=== PATIENT | male | born 1980 | race Caucasian/White ===

== ENCOUNTER 2021-12-30 05:22 | Emergency (ER) | payer OTHER ==
[2021-12-30 05:49] LABS: Absolute Lymphocytes (CBC) 4.5 K/uL (0.7-4.9); Hematocrit 44.3 % (39.6-49.0); Lymphocytes % 50.4 % (15.3-44.8); MCV 88.8 fL (80-100); MPV 7.8 fL (7.6-11.3)
[2021-12-30] MEDS ORDERED: TAMSULOSIN 0.4 MG SR CAP ONE (05:54)
[2021-12-30] MEDS ORDERED: ONDANSETRON 4 MG/2 ML VIAL ONE (05:54)
[2021-12-30] MEDS ORDERED: MAGNESIUM SULFATE 1 gm IVPB 1 GM/100 ML BAG IV ONE (05:54)
[2021-12-30] MEDS ORDERED: MEPERIDINE HCL 50 MG/ML ONE (05:54)
[2021-12-30 06:05] LABS: Albumin 3.9 g/dL (3.4-5.0); Bilirubin Total 0.4 mg/dL (0.2-1.0); Potassium 3.4 mmol/L (3.5-5.1); Protein, Total 7.4 g/dL (6.4-8.2)
[2021-12-30] MEDS ORDERED: KETOROLAC 30 MG/ML INJ ONE (06:24)
--- NOTE | 2021-12-30 08:06 | ER ---
Nurse's Notes [facility] Name: Lawrence Cordova Age: 41 yrs Sex: Male : 1980 Arrival Date: 12/30/2021 Time: 05:25 Bed 13 Private MD: Diagnosis: Kidney stone / uretrolithiasis Presentation: 12/30 05:33 Chief complaint: Patient states: he started having severe right flank pain with nausea bb and vomiting since 0430 pt thinks its a kidney stone he has had kidney stones in the past. Coronavirus screen: At this time, the client does not indicate any symptoms associated with coronavirus-19. Ebola Screen: No symptoms or risks identified at this time. Initial Sepsis Screen: Does the patient meet any 2 criteria? No. Patient's initial sepsis screen is negative. Does the patient have a suspected source of infection? No. Patient's initial sepsis screen is negative. Risk Assessment: Do you want to hurt yourself or someone else? Patient reports no desire to harm self or others. Onset of symptoms was December 30, 2021. 05:33 Method Of Arrival: Ambulatory bb 05:33 Acuity: KURTIS 3 bb Historical: - Allergies: 05:35 No Known Allergies; bb - Home Meds: 05:35 buprenorphine [Active]; bb - PMHx: 05:35 substance abuse; kidney stones; bb - PSHx: 05:35 discectomy; Lithotripsy; bb - Immunization history:: Client reports having NOT received the Covid vaccine. - Social history:: Smoking status: unknown. - Family history:: not pertinent. - Hospitalizations: : No recent hospitalization is reported. Screenin:11 Abuse screen: Denies threats or abuse. Denies injuries from another. Nutritional jg9 screening: No deficits noted. Tuberculosis screening: No symptoms or risk factors identified. Fall Risk None identified. Assessment: 05:45 General: Appears in no apparent distress. comfortable, Behavior is calm, cooperative, jb4 appropriate for age. Pain: Complains of pain in right low back Pain does not radiate. Pain currently is 10 out of 10 on a pain scale. Neuro: Level of Consciousness is awake, alert, obeys commands, Oriented to person, place, time, situation. Cardiovascular: Patient's skin is warm and dry. Respiratory: Airway is patent Respiratory effort is even, unlabored, Respiratory pattern is regular, symmetrical. GI: Abdomen is flat, non-distended, Reports nausea, vomiting. Derm: Skin is intact, Skin is pink, warm \\T\\ dry. 06:44 Reassessment: Patient appears in no apparent distress at this time. Patient and/or jb4 family updated on plan of care and expected duration. Pain level reassessed. Patient is alert, oriented x 3, equal unlabored respirations, skin warm/dry/pink. Pt states " the pain is a lot better after the Toradol. Patient states feeling better. Patient states symptoms have improved. 06:56 Reassessment: Attempted to collect urine specimen. Pt states " I still can't pee." jb4 Provider notified. 07:11 GI: Bowel sounds present X 4 quads. Abd is soft and non tender X 4 quads. jg9 07:11 Reassessment: Patient and/or family updated on plan of care and expected duration. Pain jg9 level reassessed. Patient is alert, oriented x 3, equal unlabored respirations, skin warm/dry/pink. 08:00 Reassessment: Patient and/or family updated on plan of care and expected duration. Pain jg9 level reassessed. Patient is alert, oriented x 3, equal unlabored respirations, skin warm/dry/pink. patient reports still having pain but he has been sleeping and in no obvious distress. Vital Signs: 05:33 Weight 83.91 kg (R); Height 5 ft. 8 in. (172.72 cm) (R); Pain 10/10; bb 05:41 BP 126 / 91; Pulse 57; Resp 26; Temp 97.5(O); Pulse Ox 100% on R/A; ke1 06:44 BP 115 / 97; Pulse 57; Resp 16; Pulse Ox 98% on R/A; jb4 07:00 BP 114 / 82; Pulse 57; Resp 14 S; Pulse Ox 96% on R/A; Pain 7/10; jg9 08:00 BP 115 / 81; Pulse 60; Resp 17; Pulse Ox 95% ; Pain 7/10; jg9 05:33 Body Mass Index 28.13 (83.91 kg, 172.72 cm) bb ED Course: 05:25 Patient arrived in ED. bp1 05:26 Miles Stapleton MD is Attending Physician. rn 05:35 Triage completed. bb 05:35 Arm band placed on Patient placed in an exam room, on a stretcher, on pulse oximetry. bb 05:41 Luis Austin, RN is Primary Nurse. ke1 05:44 Inserted saline lock: 18 gauge in right antecubital area, using aseptic technique. ds4 Blood collected. 06:16 CT Stone Protocol In Process Unspecified. EDMS 07:07 Attending Physician role handed off by Miles Stapleton MD sp3 07:07 Slime Daly MD is Attending Physician. sp3 07:11 Patient has correct armband on for positive identification. Bed in low position. Call jg9 light in reach. Side rails up X 1. 08:04 Matias Hines MD is Referral Physician. sp3 08:13 No provider procedures requiring assistance completed. jg9 08:14 IV discontinued. jg9 Administered Medications: 05:44 Not Given (Patient Refused): Dilaudid (HYDROmorphone) 1 mg IVP once rn 05:51 Drug: Zofran (Ondansetron) 4 mg Route: IVP; Site: right antecubital; jb4 07:19 Follow up: Response: No adverse reaction jg9 05:53 Drug: Magnesium Sulfate 1 grams Route: IVPB; Infused Over: 1 hrs; Site: right jb4 antecubital; 07:19 Follow up: IV Status: Completed infusion; IV Intake: 100ml jg9 05:53 Drug: Demerol (meperidine) 50 mg Route: IVP; Site: right antecubital; jb4 07:19 Follow up: Response: No adverse reaction; Pain is unchanged, physician notified jg9 06:14 Drug: Flomax (tamsulosin) 0.4 mg Route: PO; jb4 07:19 Follow up: Response: No adverse reaction jg9 06:19 Drug: Ketorolac 30 mg Route: IVP; Site: right antecubital; jb4 07:19 Follow up: Response: No adverse reaction; Pain is decreased jg9 Medication: 08:14 VIS not applicable for this client. jg9 Intake: 07:19 IV: 100ml; Total: 100ml. jg9 Outcome: 08:05 Discharge ordered by . sp3 08:13 Discharged to home ambulatory. jg9 08:13 Condition: stable 08:13 Discharge instructions given to patient, Instructed on discharge instructions, follow up and referral plans. Demonstrated understanding of instructions, follow-up care, Prescriptions given X 1. 08:18 Patient left the ED. jg9 Signatures: Dispatcher [employer] EDKristen Johnson, RN RN bb Miles Stapleton MD MD rn Swanson, Donovan ds4 Cameron Bruce RN RN jb4 Fiona Sullivan Setul, MD MD sp3 Cyndee Haider RN RN jg9 Luis Austin RN RN ke1
--- NOTE | 2021-12-30 08:06 | EDPHYS ---
Physician Documentation [facility] Name: Lawrence Cordova Age: 41 yrs Sex: Male : 1980 Arrival Date: 12/30/2021 Time: 05:25 Bed 13 Private MD: ED Physician Slime Daly HPI: 12/30 05:37 This 41 yrs old Male presents to ER via Ambulatory with complaints of Possible Kidney rn Stone. 05:37 The patient complains of pain in the right low back. The pain radiates to the abdomen. rn Onset: The symptoms/episode began/occurred just prior to arrival. Modifying factors: The symptoms are alleviated by nothing. the symptoms are aggravated by nothing. Associated signs and symptoms: Pertinent positives: nausea, vomiting, Pertinent negatives: fever. Severity of pain: At its worst the pain was severe in the emergency department the pain is unchanged. The patient has experienced similar episodes in the past. The patient has not recently seen a physician. Pt reports sudden onset right flank pain. + hx of kidney stones and states feels identical. [place] fine when went to bed. . Historical: - Allergies: 05:35 No Known Allergies; bb - Home Meds: 05:35 buprenorphine [Active]; bb - PMHx: 05:35 substance abuse; kidney stones; bb - PSHx: 05:35 discectomy; Lithotripsy; bb - Immunization history:: Client reports having NOT received the Covid vaccine. - Social history:: Smoking status: unknown. - Family history:: not pertinent. - Hospitalizations: : No recent hospitalization is reported. ROS: 05:37 Constitutional: Negative for fever, chills, and weight loss, Cardiovascular: Negative rn for chest pain, palpitations, and edema, Respiratory: Negative for shortness of breath, cough, wheezing, and pleuritic chest pain, Abdomen/GI: Negative for abdominal pain, diarrhea, and constipation, Back: + right flank pain : Negative for injury, bleeding, discharge, and swelling, MS/Extremity: Negative for injury and deformity, Skin: Negative for injury, rash, and discoloration, Neuro: Negative for headache, weakness, numbness, tingling, and seizure. Exam: 05:37 Constitutional: Appears uncomfortable Head/Face: Normocephalic, atraumatic. Eyes: rn Periorbital areas with no swelling, redness, or edema. Cardiovascular: Tachycardic, regular Respiratory: + mild tachypnea Abdomen/GI: soft, non-tender Back: + Right CVAT MS/ Extremity: Pulses equal, no cyanosis. Neuro: Awake and alert, GCS 15 Vital Signs: 05:33 Weight 83.91 kg (R); Height 5 ft. 8 in. (172.72 cm) (R); Pain 10/10; bb 05:41 BP 126 / 91; Pulse 57; Resp 26; Temp 97.5(O); Pulse Ox 100% on R/A; ke1 06:44 BP 115 / 97; Pulse 57; Resp 16; Pulse Ox 98% on R/A; jb4 07:00 BP 114 / 82; Pulse 57; Resp 14 S; Pulse Ox 96% on R/A; Pain 7/10; jg9 08:00 BP 115 / 81; Pulse 60; Resp 17; Pulse Ox 95% ; Pain 7/10; jg9 05:33 Body Mass Index 28.13 (83.91 kg, 172.72 cm) bb MDM: 05:26 Patient medically screened. rn 06:43 ED course: Pt refuses dilaudid/morphine. . rn 06:54 Transition of care: After a detail discussion of the patient's case, care is rn transferred to Slime Daly MD. 08:03 Data reviewed: vital signs, nurses notes. ED course: Just pain is improved on the sp3 Toradol. He states he does not want any narcotics at home. We will discharge patient home on diclofenac and he will follow-up with his urologist as needed.. 12/30 05:36 Order name: CBC with Diff; Complete Time: 06:10 rn 12/30 05:36 Order name: CMP; Complete Time: 06:10 rn 12/30 05:36 Order name: Lipase; Complete Time: 06:10 rn 12/30 05:36 Order name: CT Stone Protocol rn 12/30 05:36 Order name: IV Saline Lock; Complete Time: 05:42 rn 12/30 05:36 Order name: Labs collected and sent; Complete Time: 05:42 rn Administered Medications: 05:44 Not Given (Patient Refused): Dilaudid (HYDROmorphone) 1 mg IVP once rn 05:51 Drug: Zofran (Ondansetron) 4 mg Route: IVP; Site: right antecubital; jb4 07:19 Follow up: Response: No adverse reaction jg9 05:53 Drug: Magnesium Sulfate 1 grams Route: IVPB; Infused Over: 1 hrs; Site: right jb4 antecubital; 07:19 Follow up: IV Status: Completed infusion; IV Intake: 100ml jg9 05:53 Drug: Demerol (meperidine) 50 mg Route: IVP; Site: right antecubital; jb4 07:19 Follow up: Response: No adverse reaction; Pain is unchanged, physician notified jg9 06:14 Drug: Flomax (tamsulosin) 0.4 mg Route: PO; jb4 07:19 Follow up: Response: No adverse reaction jg9 06:19 Drug: Ketorolac 30 mg Route: IVP; Site: right antecubital; jb4 07:19 Follow up: Response: No adverse reaction; Pain is decreased jg9 Disposition Summary: 12/30/21 08:05 Discharge Ordered Location: Home sp3 Condition: Stable sp3 Diagnosis - Kidney stone / uretrolithiasis sp3 Followup: sp3 - With: Matias Hines MD - When: Upon discharge from the Emergency Department - Reason: Recheck today's complaints Discharge Instructions: - Discharge Summary Sheet sp3 - Kidney Stones sp3 Forms: - Medication Reconciliation Form sp3 - Thank You Letter sp3 - Antibiotic Education sp3 - Prescription Opioid Use sp3 Prescriptions: - Diclofenac Sodium 75 mg Oral Tablet Sustained Release - take 1 tablet by ORAL route 2 times per day; 30 tablet; Refills: 0, Product sp3 Selection Permitted Signatures: Dispatcher [employer] EDMS Kristen Jacobson RN RN bb Nieto, Roman, MD MD rn Bryson, James, RN RN jb4 Slime Daly MD MD sp3 Cyndee Haider RN jg9 Corrections: (The following items were deleted from the chart) 05:39 05:37 Constitutional: Negative for fever, chills, and weight loss, Cardiovascular: rn Negative for chest pain, palpitations, and edema, Respiratory: Negative for shortness of breath, cough, wheezing, and pleuritic chest pain, Abdomen/GI: Negative for abdominal pain, nausea, vomiting, diarrhea, and constipation, Back: + right flank pain : Negative for injury, bleeding, discharge, and swelling, MS/Extremity: Negative for injury and deformity, Skin: Negative for injury, rash, and discoloration, Neuro: Negative for headache, weakness, numbness, tingling, and seizure, rn
[2021-12-30 08:35] VITALS: TEMP 97.5
[2021-12-30 08:55] VITALS: BP 115/81; O2SAT 95
--- NOTE | 2021-12-30 10:17 | RAD REPORT ---
EXAM DESCRIPTION: CT - Stone Protocol - 12/30/2021 6:46 am CLINICAL HISTORY: The patient is 41 years old and is Male; right flank pain, hx of stones, eval for stone TECHNIQUE: Axial computed tomography images of the abdomen and pelvis without intravenous contrast. Sagittal and coronal reformatted images were created and reviewed. This CT exam was performed usi ng one or more of the following dose reduction techniques: automated exposure control, adjustment o f the mA and/or kV according to patient size, and/or use of iterative reconstruction technique. COMPARISON: No relevant prior studies available. FINDINGS: Lung bases: Unremarkable. No mass. No consolidation. ABDOMEN: Liver: Unremarkable. Gallbladder and bile ducts: Unremarkable. No calcified stones. No ductal dilation. Pancreas: Unremarkable. No ductal dilation. Spleen: Unremarkable. No splenomegaly. Adrenals: Unremarkable. No mass. Kidneys and ureters: 6 mm stone in the upper right ureter. Mild right hydroureteronephrosis and p eriureteral stranding. Nonobstructing calcifications in the kidneys bilaterally. Stomach and bowel: Unremarkable. No obstruction. No mucosal thickening. PELVIS: Appendix: No findings to suggest acute appendicitis. Bladder: Unremarkable. No stones. Reproductive: Unremarkable as visualized. ABDOMEN and PELVIS: Intraperitoneal space: Unremarkable. No free air. No significant fluid collection. Bones/joints: No acute fracture. No dislocation. Soft tissues: Unremarkable. Vasculature: Unremarkable. No abdominal aortic aneurysm. Lymph nodes: Unremarkable. No enlarged lymph nodes. IMPRESSION: 6 mm stone in the upper right ureter. Mild right hydroureteronephrosis and periureteral stranding. Electronically signed by: Matias Cage MD 12/30/2021 6:36 AM CDT Due to temporary technical issues with the PACS/Fluency reporting system, reports are being signed by the in house radiologists without review as a courtesy to insure prompt reporting. The interpreting radiologist is fully responsible for the content of the report.
== END 2021-12-30 08:18 | disposition home or self-care (01) ==
LOC: ER 05:22
DX: N20.2 Calculus of kidney with calculus of ureter (principal); Z87.442 Personal history of urinary calculi
CPT/HCPCS: 85025; 36415; 83690; 80053; 76377; 74176; J3475; J2175; J2405; 96365; 96375; 99284

== ENCOUNTER 2022-05-01 20:12 | Emergency (ER) | payer OTHER ==
[2022-05-01] MEDS ORDERED: FAMOTIDINE 20 MG/2 ML VIAL IV ONE (20:33)
[2022-05-01] MEDS ORDERED: ONDANSETRON 4 MG/2 ML VIAL ONE (20:33)
[2022-05-01] MEDS ORDERED: KETOROLAC 30 MG/ML INJ ONE (20:33)
[2022-05-01 20:45] LABS: Absolute Lymphocytes (CBC) 5.1 K/uL (0.7-4.9); Hematocrit 46.8 % (39.6-49.0); MCV 88.1 fL (80-100); MPV 7.8 fL (7.6-11.3); RBC Red Blood Cell Count 5.31 M/uL (4.33-5.43)
[2022-05-01] MEDS ORDERED: HYDROMORPHONE HCL 1 MG/ML INJ ONE ×2 (20:45→21:36)
[2022-05-01 21:03] LABS: Albumin 4.4 g/dL (3.4-5.0); Bilirubin Total 0.4 mg/dL (0.2-1.0); Potassium 3.4 mmol/L (3.5-5.1); Protein, Total 7.9 g/dL (6.4-8.2)
--- NOTE | 2022-05-01 21:26 | RAD REPORT ---
EXAM DESCRIPTION: CTStone Protocol - 05/01/2022 9:07 pm CLINICAL HISTORY: Flank pain, kidney stone suspected COMPARISON: 12/30/2021 TECHNIQUE: CT of the abdomen and pelvis was performed without IV contrast. All CT scans are performed using dose optimization technique as appropriate and may include automated exposure control or mA/KV adjustment according to patient size. FINDINGS: Lower chest: No acute abnormality. Liver: No acute abnormality or suspicious lesions. Biliary: No biliary ductal dilatation. Stomach: No significant focal abnormality. Duodenum: No significant focal abnormality. Pancreas: No significant abnormality. Spleen: No significant abnormality. Adrenal: No suspicious lesions. Kidney/ureter: Moderate right-sided hydronephrosis. 7mm stone in the right mid to distal ureter is id entified. This may represent the previously identified right proximal ureteral stone which has migrat ed. Other bilateral renal calculi noted. Retroperitoneum: No retroperitoneal adenopathy. Vascular: No aneurysm. Bowel: No significant focal abnormality. Diverticulosis. No evidence of acute diverticulitis . Normal appendix. Peritoneum: No ascites or free air. Bladder: Grossly unremarkable. Reproductive: No adnexal masses. Bones: No acute fracture. Other: n/a IMPRESSION: Moderate right-sided hydroureteronephrosis. A 7 mm stone is present in the right mid to distal distal ureter. The patient had a similar size proximal ureteral stone on the CT from 2. This may represent the same stone which has migrated.
--- NOTE | 2022-05-01 22:10 | EDPHYS ---
Physician Documentation [facility] Name: Lawrence Cordova Age: 41 yrs Sex: Male : 1980 Arrival Date: 05/01/2022 Time: 20:20 Bed 3 Private MD: ED Physician Maninder Wood HPI: 05/01 23:59 This 41 yrs old Male presents to ER via Wheelchair with complaints of flank pain. kdr 23:59 Patient has a history of kidney stones and for the last 2 days he has had right flank kdr pain. He arrived by POV and was writhing in pain in the vehicle.. Onset: The symptoms/episode began/occurred gradually, 2 day(s) ago. Severity of symptoms: At their worst the symptoms were severe incapacitating in the emergency department the symptoms are unchanged. The patient has experienced a previous episode, approximately 4 months ago. The patient has not recently seen a physician. Historical: - Allergies: 20:21 No Known Allergies; kb3 - Home Meds: 20:21 buprenorphine [Active]; kb3 - PMHx: 20:21 Kidney stones; Substance Abuse; kb3 - PSHx: 20:21 discectomy; Lithotripsy; kb3 - Immunization history:: Adult Immunizations unknown, Client reports receiving the 2nd dose of the Covid vaccine, Last tetanus immunization: unknown. - Social history:: Smoking status: Patient denies any tobacco usage or history of. Patient uses street drugs, marijuana. ROS: 23:59 Constitutional: Negative for fever, chills, and weight loss, Eyes: Negative for injury, kdr pain, redness, and discharge, Neck: Negative for injury, pain, and swelling, Cardiovascular: Negative for chest pain, palpitations, and edema, Respiratory: Negative for shortness of breath, cough, wheezing, and pleuritic chest pain, Abdomen/GI: Negative for abdominal pain, nausea, vomiting, diarrhea, and constipation, Back: Negative for injury and pain, : Negative for injury, bleeding, discharge, and swelling, MS/Extremity: Negative for injury and deformity, Skin: Negative for injury, rash, and discoloration, Neuro: Negative for headache, weakness, numbness, tingling, and seizure activity. Psych: Negative for depression, anxiety, suicide ideation, homicidal ideation, and hallucinations, Allergy/Immunology: Negative for hives, rash, and allergies, Endocrine: Negative for neck swelling, polydipsia, polyuria, polyphagia, and marked weight changes, Hematologic/Lymphatic: Negative for swollen nodes, abnormal bleeding, and unusual bruising. 23:59 Abdomen/GI: Positive for nausea, Flank pain. Exam: 23:59 Constitutional: This is a well developed, well nourished patient who is awake, alert, kdr and in moderate to severe distress. Head/Face: Normocephalic, atraumatic. Eyes: Pupils equal round and reactive to light, extra-ocular motions intact. Lids and lashes normal. Conjunctiva and sclera are non-icteric and not injected. Cornea within normal limits. Periorbital areas with no swelling, redness, or edema. Neck: Trachea midline, no thyromegaly or masses palpated, and no cervical lymphadenopathy. Supple, full range of motion without nuchal rigidity, or vertebral point tenderness. No Meningismus. Chest/axilla: Normal chest wall appearance and motion. Nontender with no deformity. No lesions are appreciated. Cardiovascular: Regular rate and rhythm with a normal S1 and S2. No gallops, murmurs, or rubs. Normal PMI, no JVD. No pulse deficits. Respiratory: Lungs have equal breath sounds bilaterally, clear to auscultation and percussion. No rales, rhonchi or wheezes noted. No increased work of breathing, no retractions or nasal flaring. Back: No spinal tenderness. No costovertebral tenderness. Full range of motion. Skin: Warm, dry with normal turgor. Normal color with no rashes, no lesions, and no evidence of cellulitis. MS/ Extremity: Pulses equal, no cyanosis. Neurovascular intact. Full, normal range of motion. Neuro: Awake and alert, GCS 15, oriented to person, place, time, and situation. Cranial nerves II-XII grossly intact. Motor strength 5/5 in all extremities. Sensory grossly intact. Cerebellar exam normal. Normal gait. Psych: Awake, alert, with orientation to person, place and time. Behavior, mood, and affect are within normal limits. 23:59 Abdomen/GI: Inspection: abdomen appears normal, Bowel sounds: normal, Palpation: soft, mild abdominal tenderness, in the anterior aspect of right lateral abdomen and posterior aspect of right lateral abdomen, mass, is not appreciated, rebound tenderness, is not appreciated. Vital Signs: 20:20 BP 136 / 82; Resp 26; Temp 98.8; Weight 86.18 kg; Height 5 ft. 8 in. (172.72 cm); Pain kb3 03/01; 20:26 Pulse 102; kd3 22:06 BP 133 / 92; Pulse 57; Resp 19 S; Pulse Ox 97% on R/A; as6 20:20 Body Mass Index 28.89 (86.18 kg, 172.72 cm) kb3 MDM: 22:09 Patient medically screened. kdr 23:59 Data reviewed: vital signs, nurses notes, lab test result(s), radiologic studies. kdr Counseling: I had a detailed discussion with the patient and/or guardian regarding: the historical points, exam findings, and any diagnostic results supporting the discharge/admit diagnosis, lab results, radiology results, the need for outpatient follow up. 05/01 20:28 Order name: CBC with Diff; Complete Time: 21:29 kdr 05/01 20:28 Order name: CMP; Complete Time: :29 kdr 05/01 20:28 Order name: CT Stone Protocol; Complete Time: 21:29 kdr 05/01 20:28 Order name: IV Saline Lock; Complete Time: 20:38 kdr 05/01 20:28 Order name: Labs collected and sent; Complete Time: 20:38 kdr Administered Medications: 20:38 Drug: Pepcid (famotidine) 20 mg Route: IVP; Site: left forearm; kd3 22:56 Follow up: Response: No adverse reaction as6 20:38 Drug: Ketorolac 15 mg Route: IVP; Site: right forearm; kd3 22:56 Follow up: Response: No adverse reaction as6 20:38 Drug: Zofran (Ondansetron) 4 mg Route: IVP; Site: right forearm; kd3 22:56 Follow up: Response: No adverse reaction as6 20:46 Drug: Dilaudid (HYDROmorphone) 1 mg Route: IVP; Site: right forearm; as6 22:56 Follow up: Response: No adverse reaction as6 21:46 Drug: Dilaudid (HYDROmorphone) 1 mg Route: IVP; Site: right forearm; as6 22:57 Follow up: Response: No adverse reaction as6 22:33 Drug: Flomax (tamsulosin) 0.4 mg Route: PO; kd3 22:57 Follow up: Response: No adverse reaction as6 22:54 Drug: Phenergan (promethazine) 25 mg Route: IM; Site: right deltoid; as6 22:57 Follow up: Response: No adverse reaction as6 Disposition Summary: 05/01/22 22:09 Discharge Ordered Location: Home kdr Problem: an acute exacerbation kdr Symptoms: have improved kdr Condition: Stable kdr Diagnosis - Hydronephrosis with renal and ureteral calculous obstruction kdr - Kidney Stone/ Calculus in urethra kdr Followup: kdr - With: Private Physician - When: 2 - 3 days - Reason: If symptoms return, Further diagnostic work-up, Recheck today's complaints, Continuance of care, Re-evaluation by your physician Discharge Instructions: - Discharge Summary Sheet kdr - Kidney Stones, [id number] kdr - Hydronephrosis kdr - Dietary Guidelines to Help Prevent Kidney Stones kdr Forms: - Medication Reconciliation Form kdr - Thank You Letter kdr - Antibiotic Education kdr - Prescription Opioid Use kdr Prescriptions: - Zofran 4 mg Oral Tablet - take 1 tablet by ORAL route every 4-6 hours As needed; 26 tablet; Refills: 0, kdr Product Selection Permitted - Tramadol 50 mg Oral Tablet - take 1 tablet by ORAL route every 8 hours as needed; 12 tablet; Refills: 0, kdr Product Selection Permitted - Bactrim DS 800-160 mg Oral Tablet - take 1 tablet by ORAL route every 12 hours for 3 days; 6 tablet; Refills: 0, kdr Product Selection Permitted - Flomax 0.4 mg Oral capsule - take 1 capsule by ORAL route once daily 1/2 hour following the same meal each cp day; 10 capsule; Refills: 0, Product Selection Permitted Signatures: Dispatcher [employer] Maninder Daly MD MD kdr Enmanuel Roa RN RN as6 Carole Bland RN RN kd3 Rocio Willams, RN RN kb3
--- NOTE | 2022-05-01 22:10 | ER ---
Nurse's Notes [facility] Name: Lawrence Cordova Age: 41 yrs Sex: Male : 1980 Arrival Date: 05/01/2022 Time: 20:20 Bed 3 Private MD: Diagnosis: Hydronephrosis with renal and ureteral calculous obstruction;Kidney Stone/ Calculus in urethra Presentation: 05/01 20:20 Chief complaint: Patient states: Retrieved pt from POV crying and writhing in pain. kb3 Reports right flank pain and vomiting x2 days with history of kidney stones. Coronavirus screen: Vaccine status: Patient reports being unvaccinated. Client denies travel out of the [place] in the last 14 days. Ebola Screen: Patient negative for fever greater than or equal to 101.5 degrees Fahrenheit, and additional compatible Ebola Virus Disease symptoms Patient denies exposure to infectious person. Patient denies travel to an Ebola-affected area in the 21 days before illness onset. Initial Sepsis Screen: Does the patient meet any 2 criteria? No. Patient's initial sepsis screen is negative. Does the patient have a suspected source of infection? No. Patient's initial sepsis screen is negative. Risk Assessment: Do you want to hurt yourself or someone else? Patient reports no desire to harm self or others. Onset of symptoms was April 29, 2022. 20:20 Method Of Arrival: Wheelchair kb 20:20 Acuity: KURTIS 3 kb3 Triage Assessment: 20:21 General: Appears distressed, uncomfortable, ill, Behavior is crying, restless. Pain: kb3 Complains of pain in right low back Pain radiates to right lower quadrant Pain currently is 10 out of 10 on a pain scale. Quality of pain is described as sharp, Pain began 2-3 days ago. : Reports pain in right flank(s), lower quadrant(s). Historical: - Allergies: 20:21 No Known Allergies; kb3 - Home Meds: 20:21 buprenorphine [Active]; kb3 - PMHx: 20:21 Kidney stones; Substance Abuse; kb3 - PSHx: 20:21 discectomy; Lithotripsy; kb3 - Immunization history:: Adult Immunizations unknown, Client reports receiving the 2nd dose of the Covid vaccine, Last tetanus immunization: unknown. - Social history:: Smoking status: Patient denies any tobacco usage or history of. Patient uses street drugs, marijuana. Screenin:26 Abuse screen: Denies threats or abuse. Denies injuries from another. Nutritional kd3 screening: No deficits noted. Tuberculosis screening: No symptoms or risk factors identified. Fall Risk None identified. IV access (20 points). Assessment: 20:25 General: Appears uncomfortable, Behavior is cooperative. Pain: Complains of pain in kd3 abdomen and right lower quadrant and back and right low back. Neuro: Level of Consciousness is awake, alert, obeys commands, Oriented to person, place, time, situation. Cardiovascular: Patient's skin is warm and dry. Respiratory: Airway is patent Trachea midline Respiratory effort is even, unlabored, Respiratory pattern is regular, symmetrical. GI: Pt is actively vomiting undigested food. Vital Signs: 20:20 BP 136 / 82; Resp 26; Temp 98.8; Weight 86.18 kg; Height 5 ft. 8 in. (172.72 cm); Pain kb3 10/10; 20:26 Pulse 102; kd3 22:06 BP 133 / 92; Pulse 57; Resp 19 S; Pulse Ox 97% on R/A; as6 20:20 Body Mass Index 28.89 (86.18 kg, 172.72 cm) kb3 ED Course: 20:20 Patient arrived in ED. kb3 20:21 Triage completed. kb3 20:21 Arm band placed on left wrist. Patient placed in an exam room, on a stretcher. kb3 20:23 Carole Bland, ALFONZO is Primary Nurse. kd3 20:24 Inserted saline lock: 20 gauge in right forearm, using aseptic technique. Blood kd3 collected. 20:25 Maninder Wood MD is Attending Physician. kdr 20:26 Patient has correct armband on for positive identification. Bed in low position. kd3 20:26 No provider procedures requiring assistance completed. kd3 21:08 CT Stone Protocol In Process Unspecified. EDMS 23:06 IV discontinued, intact, bleeding controlled, No redness/swelling at site. Pressure as6 dressing applied. Administered Medications: 20:38 Drug: Pepcid (famotidine) 20 mg Route: IVP; Site: left forearm; kd3 22:56 Follow up: Response: No adverse reaction as6 20:38 Drug: Ketorolac 15 mg Route: IVP; Site: right forearm; kd3 22:56 Follow up: Response: No adverse reaction as6 20:38 Drug: Zofran (Ondansetron) 4 mg Route: IVP; Site: right forearm; kd3 22:56 Follow up: Response: No adverse reaction as6 20:46 Drug: Dilaudid (HYDROmorphone) 1 mg Route: IVP; Site: right forearm; as6 22:56 Follow up: Response: No adverse reaction as6 21:46 Drug: Dilaudid (HYDROmorphone) 1 mg Route: IVP; Site: right forearm; as6 22:57 Follow up: Response: No adverse reaction as6 22:33 Drug: Flomax (tamsulosin) 0.4 mg Route: PO; kd3 22:57 Follow up: Response: No adverse reaction as6 22:54 Drug: Phenergan (promethazine) 25 mg Route: IM; Site: right deltoid; as6 22:57 Follow up: Response: No adverse reaction as6 Medication: 20:26 VIS not applicable for this client. kd3 Outcome: 22:09 Discharge ordered by . kdr 23:05 Discharged to home via wheelchair, with significant other. as6 23:05 Condition: stable 23:05 Discharge instructions given to patient, Instructed on discharge instructions, follow up and referral plans. medication usage, Demonstrated understanding of instructions, follow-up care, medications, Prescriptions given X 4. 23:06 Patient left the ED. as6 Signatures: Dispatcher [employer] EDMS Maninder Wood MD MD kdr Slawson, Ashby, RN RN as6 Carole Bland RN RN kd3 Rocio Willams RN RN kb3
[2022-05-01] MEDS ORDERED: TAMSULOSIN 0.4 MG SR CAP ONE (22:24)
[2022-05-01] MEDS ORDERED: PROMETHAZINE INJ 25 MG/ML AMP ONE (22:53)
[2022-05-02 01:43] VITALS: TEMP 98.8
[2022-05-02 01:54] VITALS: BP 133/92; O2SAT 97
== END 2022-05-01 23:06 | disposition home or self-care (01) ==
LOC: ER 20:12
DX: N13.2 Hydronephrosis with renal and ureteral calculous obstruction (principal); N21.1 Calculus in urethra; Z87.442 Personal history of urinary calculi
CPT/HCPCS: 85025; 36415; 80053; 76377; 74176; 96372; 99284; J2550; J1170 ×2; J2405

== ENCOUNTER 2022-07-14 18:03 | Day surgery (SDC) | payer OTHER ==
[2022-07-14 15:48] LABS: Absolute Lymphocytes (CBC) 2.1 K/uL (0.7-4.9); Hematocrit 43.4 % (39.6-49.0); Lymphocytes % 32.1 % (15.3-44.8); MCV 88.3 fL (80-100); MPV 7.8 fL (7.6-11.3); RBC Red Blood Cell Count 4.92 M/uL (4.33-5.43)
[2022-07-14 15:49] LABS: Protime INR 0.98
[2022-07-14 15:50] LABS: Potassium 4.4 mmol/L (3.5-5.1)
[2022-07-14] MEDS ORDERED: CEFAZOLIN 2 GM in NA CHLORIDE 0.9% 100 ML IVPB ONE (19:00)
[2022-07-14] MEDS ORDERED: propofoL 200 MG/20 ML VIAL IV ONE (19:11)
[2022-07-14] MEDS ORDERED: dexAMETHasone 10 MG/ML VIAL ONE (19:12)
[2022-07-14] MEDS ORDERED: ONDANSETRON 4 MG/2 ML VIAL ONE ×2 (19:12→19:13)
[2022-07-14] MEDS ORDERED: FENTANYL CITR 100 MCG/2 ML ONE (19:12)
[2022-07-14] MEDS ORDERED: LIDOCAINE 1% MPF 5 ML VIAL ONE (19:12)
[2022-07-14] MEDS ORDERED: KETOROLAC 30 MG/ML INJ ONE (19:12)
[2022-07-14] MEDS ORDERED: CELECOXIB 100 MG CAPSULE ONE (19:29)
[2022-07-14] MEDS ORDERED: ACETAMINOPHEN 500 MG TAB ONE (19:29)
[2022-07-14] MEDS ORDERED: GLYCOPYRROLATE 0.2 MG/ML SYR ONE (20:12)
--- NOTE | 2022-07-14 20:42 | RAD REPORT ---
EXAM DESCRIPTION: RAD - Cystography - 07/14/2022 8:30 pm CLINICAL HISTORY: STENT COMPARISON: None available. FINDINGS: Five Images were sent to PACS, documenting an image guided ureteral stent placement proced ure. No radiologist was available for the procedure, nor will any image interpretation he provided. Milagro johnson refer to the procedural report for additional details. Fluoroscopy time: 6 seconds. IMPRESSION: Documentation of fluoroscopy utilization as above.
[2022-07-14] MEDS: HYDROMORPHONE HCL 1 MG/ML INJ ONE ×5 (20:44→20:59)
[2022-07-14] MEDS ORDERED: PHENAZOPYRIDINE 100MG TAB PO ONE ×2 (21:03→21:09)
[2022-07-14 22:19] VITALS: BP 105/72; TEMP 97.2; O2SAT 97
--- NOTE | 2022-07-15 08:31 | OP ---
Surgeon: SANTANA HINDS Preoperative Diagnoses: 1.Right ureterolithiasis. 2.Right flank pain. 3.Anorexia. Postoperative Diagnoses: 1.Right ureterolithiasis. 2.Right flank pain. 3.Anorexia. 4.Right hydronephrosis. Principal Procedures: 1.Cystoscopy with right retrograde pyelography. 2.Right ureteral stent placement. Indication For Procedure: Mr. Cordova is a 42-year-old gentleman on buprenorphine with active use of m arijuana with right 7 mm ureterolithiasis present since December of 2021 and associated with recurrent right flank pain, nausea, and irritative lower urinary symptoms. He was counseled on the potential f or stricture formation as well as acute kidney injury associated with the prolonged obstructing calcu mariah and recommended for intervention given his extreme symptomatic state. Because I saw him early en ough in the day for him to become n.p.o. in preparation for a procedure tonight, I was able to counse l him accordingly and he agreed to proceed with right ureteral stent placement. Procedure In Detail: The patient was consented in the preoperative holding area before being transfe rred to operative suit where general anesthesia was induced. He was given Ancef 2 g IV antimicrobial prophylaxis and Pneumoboots were provided for DVT prophylaxis. He was placed in the lithotomy posit ion, padded and secured to the table appropriately, and his genitalia was prepped with Hibiclens. He was draped in standard fashion, and the case was begun using a 22-Bahraini rigid cystoscope to ruchi e the urethra and into the bladder. The bladder was surveyed and there were no papillary mucosal les ions, foreign bodies, or stones. It was decompressed off fluid and urine, and then refilled with amanda rile saline. I then cannulated the right ureteral orifice using the tip of a 5-Bahraini ureteral acces s catheter. Right retrograde pyelography: Using a 70:30 mixture of Omnipaque and saline, contrast was injected v ia the lumen of the 5-Bahraini ureteral access catheter and did propagate up an intermittently dilated and narrowed ureteral lumen with a point of obstruction in the mid distal ureter that was evident sub sequently on attempt to pass the wire. The contrast did emanate into the collecting system where it did fill the pelvis and some of the calyces with evidence of pelviectasis without marked caliectasis. As a result, I was able to navigate the wire beyond the point of obstruction and into the putative collecting system upper pole as observed fluoroscopically. Coil was observed within the upper pole, and so I then fed a 6-Bahraini x 26 cm double-J ureteral stent over the wire and coiled it within the r enal pelvis with an additional coil formed cystoscopically within his bladder. I decompressed his bl adder off fluid and urine, and took him out of the lithotomy position. He was then awakened from gen eral anesthesia, transferred to a stretcher, and then transferred to the recovery room in [facility]. Complications: None. Discharge Disposition: Since he has undergone multiple prior ureteroscopic and other surgical interv entions for kidney stones in the past, he is likely very familiar with the approach. As such, he cou ld reasonably be rescheduled for definitive management via ureteroscopy with laser lithotripsy of the right side within the coming month, if time is available. Alternatively, he may see me back in cons ultation prior to definitive surgical intervention whenever it can most reasonably be scheduled, and I will ensure to do his preoperative evaluation then. There may be some consideration to hold his bu prenorphine/Suboxone to minimize its inhibition of narcotics that may be given during surgery, and th is would be discussed on his preoperative evaluation. He otherwise will be discharged with Ditropan 5 to 10 mg p.o. daily as needed for stent discomfort. Otherwise discharge instructions included the use of Tylenol alternated with Motrin for the stent discomfort and Pyridium/Azo for any burning with urination. Narcotics would not be appropriate given his active use of Suboxone and marijuana. WR/MODL Voice ID: [id number] Report ID: [id number]
--- NOTE | 2022-07-15 16:31 | EKG ---
Test Date: 2022-07-14 Test Time: 15:14:00 Tonnage Compilation Clerk: ZAKIYA MEASUREMENT RESULTS: Intervals: Rate: 53 RI: 154 QRSD: 90 QT: 400 QTc: 375 [place]: P: 18 RI: 154 QRS: 57 T: 31 INTERPRETIVE STATEMENTS: Sinus bradycardia Otherwise normal ECG No previous ECG available for comparison Electronically Signed On 07-15-22 16:29:21 CONSULTING SYSTEMS ENGINEER by Jorge A Chen
== END 2022-07-14 21:53 | disposition home or self-care (01) ==
LOC: DS 18:03
PROVIDERS: ATTEND Urology
PROC: 0T768ZZ Dilation of Right Ureter, Via Natural or Artificial Opening Endoscopic (ICD-10-PCS; principal; 2022-07-14 19:00)
DX: N13.2 Hydronephrosis with renal and ureteral calculous obstruction (principal); R10.9 Unspecified abdominal pain; R63.0 Anorexia; Z68.29 Body mass index [BMI] 29.0-29.9, adult
CPT/HCPCS: 87088; 85025; 87086; 80048; 36415; 85610; 51600; 74430; 52332; J2704; J2001; J3010; J1100; J1170 ×2; J2405 ×2; J0690; 93005